=== PATIENT | male | born 1985 | race Caucasian/White ===

== ENCOUNTER 2017-05-16 10:39 | Emergency (ER) | payer MEDICAID ==
[~2017-05-16] VITALS: Ht 177.8 cm; Wt 92.5 kg
[2017-05-16 11:19] VITALS: BP 143/72
--- NOTE | 2017-05-16 12:11 | NUR ---
PT AMBULATED TO BED 5.
--- NOTE | 2017-05-16 12:15 | NUR ---
31M BIB FAMILY C/O RT ANTERIOR HEADACHE, THROBBING, RADIATES TO LEFT ANTERIOR HEAD, 6/10 X THIS MORNING; PT STATES NO BLURRY VISION OR VISION CHANGES AT THIS TIME; PT STATES NO TRAUMA OR INJURY TO SITE AT THIS TIME; PT AA&OX4, PERRLA, BL LUNG SOUNDS CLEAR, RR EVEN/UNLABORED, SKIN IS WARM/DRY/INTACT AT THIS TIME; PT C/O NAUSEA, BUT STATES NO VOMITING OR DIARRHEA AT THIS TIME; ABDOMEN SOFT, NON-TENDER, ACTIVE BOWEL SOUNDS X 4 QUADRANTS; STEADY GAIT; PT RESTING IN BED WITH HOB ELEVATED AND IN LOWEST POSITION; POSITIONED FOR COMFORT; ER MD MADE AWARE OF STATUS. WILL CONTINUE TO MONITOR.
--- NOTE | 2017-05-16 12:17 | NUR ---
ER MD DR. SERNA EVALUATING PT AT BEDSIDE.
[2017-05-16] MEDS ORDERED: MORPHINE SULFATE 4 MG/ML SYR IVP ONE (12:20)
[2017-05-16] MEDS ORDERED: PROCHLORPERAZINE 10 MG/2 ML VIAL IVP ONE (12:20)
[2017-05-16] MEDS ORDERED: NACL 0.9% 1,000 ML IV ONE (12:20)
--- NOTE | 2017-05-16 12:34 | NUR ---
Patient back from CT via wheelchair per tech.
--- NOTE | 2017-05-16 13:50 | NUR ---
IV removed, catheter intact and site benign. Applied folded 4x4 gauze and tape to stop bleeding. PT TOLERATED PROCEDURE WELL.
[2017-05-16 14:02] VITALS: BP 129/83
--- NOTE | 2017-05-16 14:02 | NUR ---
Patient discharged with v/s stable. Written and verbal after care instructions given and explained. Patient verbalized understanding. Ambulatory with steady gait. All questions addressed prior to discharge. Advised to follow up with PMD.
== END 2017-05-16 14:02 | disposition home or self-care (01) ==
LOC: MED 10:39
DX: G43.909 Migraine, unspecified, not intractable, without status migrainosus (principal)
CPT/HCPCS: 70450; 96361; 96374; 96375; 99284; J0780; J2270; J7030

== ENCOUNTER 2017-06-30 13:03 | Emergency (ER) | payer MEDICAID ==
[~2017-06-30] VITALS: Ht 182.9 cm; Wt 84.8 kg
--- NOTE | 2017-06-30 13:08 | NUR ---
Patient ambulated to bed 6. Dr. Hale and RN evaluating patient at bedside.
[2017-06-30 13:10] VITALS: BP 132/94
--- NOTE | 2017-06-30 13:12 | NUR ---
31M BIB FAMILY C/O LEFT HEADACHE, THROBBING, NON-RADIATING, 10/10 X 0900 THIS MORNING; PT STATES NO TRAUMA OR INJURY TO SITE AT THIS TIME; PT AA&OX4, PERRLA, STATES NO BLURRY VISION OR VISION CHANGES AT THIS TIME. PT STATES " I CAN SEE CLEAR"; PT C/O NAUSEA, BUT STATES NO VOMITING OR DIARRHEA AT THIS TIME; ABDOMEN SOFT, NON-TENDER, ACTIVE BOWEL SOUNDS X 4 QUADRANTS; BL LUNG SOUNDS CLEAR, RR EVEN/UNLABORED, SKIN IS WARM/DRY/INTACT AT THIS TIME; STEADY GAIT; PT RESTING IN BED WITH HOB ELEVATED AND IN LOWEST POSITION; POSITIONED FOR COMFORT; ER MD MADE AWARE OF STATUS. WILL CONTINUE TO MONITOR.
--- NOTE | 2017-06-30 13:15 | NUR ---
Dr. Hale evaluating patient at bedside.
[2017-06-30] MEDS ORDERED: METOCLOPRAMIDE 10 MG/2 ML INJ VIAL IM ONE (13:25)
[2017-06-30] MEDS ORDERED: KETOROLAC 60 MG/2 ML VIAL IM ONE (13:25)
[2017-06-30] MEDS ORDERED: ONDANSETRON 4 MG ODT PO ONE (13:55)
--- NOTE | 2017-06-30 14:43 | NUR ---
Dr. Hale evaluating patient at bedside.
[2017-06-30] MEDS ORDERED: SUMAtriptan 6 MG/0.5 ML VIAL SUBQ ONE (14:45)
[2017-06-30 16:03] VITALS: BP 124/70
--- NOTE | 2017-06-30 16:03 | NUR ---
Patient discharged with v/s stable. Written and verbal after care instructions given and explained. Patient alert, oriented and verbalized understanding of instructions. Ambulatory with steady gait. All questions addressed prior to discharge. ID band removed. Patient advised to follow up with PMD. Rx of IMITREX 25MG TAB AND ZOFRANT ODT 4MG TAB given. Patient educated on indication of medication including possible reaction and side effects. Opportunity to ask questions provided and answered.
== END 2017-06-30 16:03 | disposition home or self-care (01) ==
LOC: MED 13:03
DX: G44.009 Cluster headache syndrome, unspecified, not intractable (principal)
CPT/HCPCS: 96372; 99284; J1885; J2765; J3030; S0119

== ENCOUNTER 2018-02-01 15:41 | Emergency (ER) | payer MEDICAID ==
[~2018-02-01] VITALS: Ht 188 cm; Wt 73.5 kg
[2018-02-01 15:49] VITALS: BP 126/82
--- NOTE | 2018-02-01 15:54 | NUR ---
PT AMBULATES TO BED 1
--- NOTE | 2018-02-01 15:59 | NUR ---
32/M BIB FATHER with c/o headache. When asked where pain is located pt sts "my brain hurts". Patient reports of vomitting and photophobia. Patient restlessness and moaning. motrin 100mg given today at 1415. hx--cluster headache. SKIN IS PINK/WARM/DRY; AAOX4 WITH EVEN AND STEADY GAIT; LUNGS CLEAR BL. PT DENIES ANY FEVER, CP, SOB, OR COUGH AT THIS TIME; PATIENT STATES PAIN OF 10/10 AT THIS TIME. PATIENT POSITIONED FOR COMFORT; HOB ELEVATED; BEDRAILS UP X2; BED DOWN. ER MD MADE AWARE OF PT STATUS.
--- NOTE | 2018-02-01 16:22 | NUR ---
Patient being evaluated by DR CHARLES at bedside.
[2018-02-01] MEDS ORDERED: KETOROLAC 60 MG/2 ML VIAL IM ONE (16:30)
[2018-02-01] MEDS ORDERED: diphenhydrAMINE 50 MG/ML VIAL IM ONE (16:30)
[2018-02-01] MEDS ORDERED: PROCHLORPERAZINE 10 MG/2 ML VIAL IM ONE (16:30)
[2018-02-01] MEDS ORDERED: fentaNYL 0.05 MG/ML VIAL IM ONE (17:45)
[2018-02-01 18:47] VITALS: BP 124/77
== END 2018-02-01 18:48 | disposition home or self-care (01) ==
LOC: MED 15:41
DX: G43.909 Migraine, unspecified, not intractable, without status migrainosus (principal)
CPT/HCPCS: 96372; 99284; J0780; J1200; J1885; J3010